=== PATIENT | male | born 1960 | race Caucasian/White ===

== ENCOUNTER 2023-07-10 06:49 | Inpatient (IN) | payer OTHER ==
[2023-07-10] VITALS (8 sets, daily range): BP systolic 128–188; BP diastolic 64–87; TEMP 97–98.4; O2SAT 92–94
[~2023-07-10] VITALS: Ht 188 cm; Wt 73.4 kg
[~2023-07-10 06:49] MED LIST: ASPI81TA26 PO; ATOR1TAB19 PO; CILO50TA2 PO; LOSA100T8 PO; NORV5TAB PO; TAMS1CAP17 PO; ceFAZolin SOD 2 GM in IV 1 EA IV ONE
[2023-07-10] MEDS ORDERED: LIDOCAINE 1% SDV 30ML VIAL As Ordered ONE (07:10)
[2023-07-10] MEDS ORDERED: LIDOCAINE 2% 100MG/5ML SDV (FOR ANES.) As Ordered ONE (07:17)
[2023-07-10] MEDS ORDERED: propofoL 200 MG/20 ML VIAL As Ordered ONE (07:17)
[2023-07-10] MEDS ORDERED: ROCURONIUM BROMIDE 50MG/5ML VIAL As Ordered ONE ×2 (07:17→09:04)
[2023-07-10] MEDS ORDERED: fentaNYL 250 MCG/5 ML INJECTION As Ordered ONE (07:18)
[2023-07-10] MEDS ORDERED: MIDAZOLAM INJ 2MG/2ML VIAL As Ordered ONE (07:18)
[2023-07-10] MEDS ORDERED: LR 1,000 ML IV SCH ×2 (07:35→12:05)
[2023-07-10] MEDS ORDERED: ePHEDrine SULFATE 25 MG/5 ML(5MG/ML) SYRINGE As Ordered ONE ×2 (08:27→11:41)
[2023-07-10] MEDS ORDERED: ONDANSETRON 4MG 2ML VIAL As Ordered ONE (10:22)
[2023-07-10] MEDS ORDERED: HYDROmorphone HCL 2MG/ML 1ML VIAL As Ordered ONE (10:22)
[2023-07-10] MEDS ORDERED: KETOROLAC 60MG 2ML VIAL As Ordered ONE (10:22)
[2023-07-10] MEDS ORDERED: SUGAMMADEX SODIUM 500 MG/5 ML VIAL (BRIDION) As Ordered ONE (10:23)
[2023-07-10] MEDS ORDERED: METOCLOPRAMIDE INJ 10MG/2ML VIAL As Ordered ONE (10:28)
[2023-07-10] MEDS ORDERED: ACETAMINOPHEN 1000MG 100ML IV BAG As Ordered ONE (11:14)
[2023-07-10] MEDS ORDERED: MEPERIDINE 25 MG/ML 1ML VIAL IV PRN (12:05)
[2023-07-10] MEDS ORDERED: fentaNYL 100 MCG/2 ML INJECTION IV PRN (12:05)
[2023-07-10] MEDS ORDERED: oxyCODONE 5MG TAB PO PRN (12:05)
[2023-07-10] MEDS ORDERED: ONDANSETRON 4MG 2ML VIAL IV PRN (12:05)
[2023-07-10] MEDS ORDERED: HYDROMORPHONE HCL 0.5 MG/ 0.5 ML SYRINGE IV PRN (12:05)
[2023-07-10 13:11] LABS: HEMATOCRIT 40.7 % (42.0-52.0); HEMOGLOBIN 13.5 g/dl (13.5-17.5); MEAN CORPUSCULAR HEMOGLOBIN 30.1 pg (27.0-33.0); MEAN CORPUSCULAR HGB CONC 33.2 g/dl (32.0-36.5); MEAN CORPUSCULAR VOLUME 90.6 fl (80.0-96.0); PLATELET COUNT, AUTOMATED 246 10^3/uL (150-450); RED BLOOD COUNT 4.49 10^6/uL (4.30-6.10); WHITE BLOOD COUNT 12.2 10^3/uL (4.0-10.0)
[2023-07-10 13:44] LABS: BLOOD UREA NITROGEN 25 MG/DL (9-23); CALCIUM LEVEL 8.1 MG/DL (8.3-10.6); CARBON DIOXIDE LEVEL 24 MMOL/L (20-31); CHLORIDE LEVEL 104 MMOL/L (98-107); CREATININE FOR GFR 0.97 MG/DL (0.70-1.30); GLOMERULAR FILTRATION RATE > 60.0 (>49); GLUCOSE, FASTING 126 MG/DL (74-106); POTASSIUM SERUM 4.1 MMOL/L (3.5-5.1); SODIUM LEVEL 138 MMOL/L (136-145)
[2023-07-10] MEDS: NS 1,000 ML IV SCH (14:22)
[2023-07-10] MEDS ORDERED: HOME MED LIST COMPLETE! XX SCH (15:20)
[2023-07-10] MEDS: hydroCHLOROthiazide 12.5 MG CAPSULE PO SCH (16:39)
[2023-07-10] MEDS: LOSARTAN 50MG TABLET PO SCH (16:40)
[2023-07-10] MEDS: PERCOCET 5MG/325MG TAB PO PRN (17:25)
[2023-07-10] MEDS: TAMSULOSIN 0.4 MG CAP PO SCH (21:01)
[2023-07-10] MEDS: DOCUSATE SODIUM 100MG CAPSULE PO SCH (21:01)
[2023-07-10] MEDS: ceFAZolin SOD 1 GM in D5W MINI-BAG PLUS 50 ML IV SCH (21:01)
[2023-07-10] MEDS: ATORVASTATIN 10 MG TAB PO SCH (21:02)
[2023-07-11 02:00] VITALS: BP 182/72; TEMP 96.8; O2SAT 94
[2023-07-11] MEDS: NS 1,000 ML IV SCH (02:53)
[2023-07-11] MEDS: PERCOCET 5MG/325MG TAB PO PRN ×4 (02:54→21:04)
[2023-07-11] MEDS: ceFAZolin SOD 1 GM in D5W MINI-BAG PLUS 50 ML IV SCH (03:02)
[2023-07-11 06:00] VITALS: BP 172/77; TEMP 95.4; O2SAT 93
[2023-07-11 06:41] LABS: HEMATOCRIT 38.5 % (42.0-52.0); HEMOGLOBIN 13.3 g/dl (13.5-17.5); MEAN CORPUSCULAR HEMOGLOBIN 30.2 pg (27.0-33.0); MEAN CORPUSCULAR HGB CONC 34.5 g/dl (32.0-36.5); MEAN CORPUSCULAR VOLUME 87.3 fl (80.0-96.0); PLATELET COUNT, AUTOMATED 249 10^3/uL (150-450); RED BLOOD COUNT 4.41 10^6/uL (4.30-6.10); WHITE BLOOD COUNT 12.3 10^3/uL (4.0-10.0)
[2023-07-11 07:06] LABS: BLOOD UREA NITROGEN 20 MG/DL (9-23); CALCIUM LEVEL 8.1 MG/DL (8.3-10.6); CARBON DIOXIDE LEVEL 27 MMOL/L (20-31); CHLORIDE LEVEL 102 MMOL/L (98-107); CREATININE FOR GFR 0.87 MG/DL (0.70-1.30); GLOMERULAR FILTRATION RATE > 60.0 (>49); GLUCOSE, FASTING 109 MG/DL (74-106); POTASSIUM SERUM 3.3 MMOL/L (3.5-5.1); SODIUM LEVEL 138 MMOL/L (136-145)
[2023-07-11] MEDS: LOSARTAN 50MG TABLET PO SCH (08:34)
[2023-07-11] MEDS: amLODIPine 5 MG TAB PO SCH (08:34)
[2023-07-11] MEDS: hydroCHLOROthiazide 12.5 MG CAPSULE PO SCH (08:34)
[2023-07-11] MEDS: DOCUSATE SODIUM 100MG CAPSULE PO SCH ×2 (08:35→20:00)
[2023-07-11] MEDS: ACETAMINOPHEN TAB 650MG DOSE (2X325MG) PO PRN ×3 (08:36→20:01)
[2023-07-11] MEDS ORDERED: COLA100C5 PO (10:44)
[2023-07-11] MEDS ORDERED: PERCOCET PO (10:44)
[2023-07-11 14:00] VITALS: BP 132/60; TEMP 97.5; O2SAT 94
[2023-07-11] MEDS: ATORVASTATIN 10 MG TAB PO SCH (19:59)
[2023-07-11] MEDS: TAMSULOSIN 0.4 MG CAP PO SCH (20:00)
[2023-07-11 22:00] VITALS: BP 111/52; TEMP 96.8; O2SAT 94
[2023-07-12] VITALS (14 sets, daily range): BP systolic 93–132; BP diastolic 57–86; TEMP 93.9–99; O2SAT 89–93
[2023-07-12] MEDS: ACETAMINOPHEN TAB 650MG DOSE (2X325MG) PO PRN ×3 (00:38→15:41)
[2023-07-12] MEDS: PERCOCET 5MG/325MG TAB PO PRN ×3 (01:03→20:34)
[2023-07-12] MEDS: ONDANSETRON 4MG 2ML VIAL IV PRN ×2 (04:27→10:01)
[2023-07-12 06:50] LABS: HEMATOCRIT 29.3 % (42.0-52.0); MEAN CORPUSCULAR HEMOGLOBIN 30.4 pg (27.0-33.0); MEAN CORPUSCULAR HGB CONC 33.8 g/dl (32.0-36.5); MEAN CORPUSCULAR VOLUME 89.9 fl (80.0-96.0); PLATELET COUNT, AUTOMATED 294 10^3/uL (150-450); RED BLOOD COUNT 3.26 10^6/uL (4.30-6.10); WHITE BLOOD COUNT 18.5 10^3/uL (4.0-10.0)
[2023-07-12 06:55] LABS: HEMOGLOBIN 9.9 g/dl (13.5-17.5)
[2023-07-12 07:23] LABS: CALCIUM LEVEL 8.4 MG/DL (8.3-10.6); CREATININE FOR GFR 1.83 MG/DL (0.70-1.30); GLOMERULAR FILTRATION RATE 40.4 (>49)
[2023-07-12] MEDS: NS 1,000 ML IV SCH ×2 (08:51→20:25)
[2023-07-12] MEDS: amLODIPine 5 MG TAB PO SCH (10:02)
[2023-07-12] MEDS: hydroCHLOROthiazide 12.5 MG CAPSULE PO SCH (10:03)
[2023-07-12] MEDS: LOSARTAN 50MG TABLET PO SCH (10:04)
[2023-07-12] MEDS: DOCUSATE SODIUM 100MG CAPSULE PO SCH ×2 (10:04→20:32)
[2023-07-12 12:00] LABS: HEMATOCRIT 26.7 % (42.0-52.0); HEMOGLOBIN 8.9 g/dl (13.5-17.5); MEAN CORPUSCULAR HEMOGLOBIN 30.1 pg (27.0-33.0); MEAN CORPUSCULAR HGB CONC 33.3 g/dl (32.0-36.5); MEAN CORPUSCULAR VOLUME 90.2 fl (80.0-96.0); PLATELET COUNT, AUTOMATED 287 10^3/uL (150-450); RED BLOOD COUNT 2.96 10^6/uL (4.30-6.10); WHITE BLOOD COUNT 20.1 10^3/uL (4.0-10.0)
[2023-07-12] MEDS ORDERED: FAMOTIDINE 20 MG TAB PO ONE (12:15)
[2023-07-12 12:29] LABS: CREATININE FOR GFR 2.01 MG/DL (0.70-1.30); GLOMERULAR FILTRATION RATE 36.3 (>49)
[2023-07-12 14:48] LABS: INR 1.18; PARTIAL THROMBOPLASTIN TIME 29.6 SECONDS (24.8-34.2); PROTHROMBIN TIME 14.6 SECONDS (12.5-14.5)
[2023-07-12] MEDS: TAMSULOSIN 0.4 MG CAP PO SCH (20:32)
[2023-07-12] MEDS: ATORVASTATIN 10 MG TAB PO SCH (20:32)
[2023-07-12 21:35] LABS: HEMATOCRIT 27.4 % (42.0-52.0); HEMOGLOBIN 9.4 g/dl (13.5-17.5)
[2023-07-13] VITALS (14 sets, daily range): BP systolic 94–133; BP diastolic 57–84; TEMP 96.8–98.4; O2SAT 90–95
[2023-07-13] MEDS: PERCOCET 5MG/325MG TAB PO PRN ×5 (00:38→22:53)
[2023-07-13] MEDS: ACETAMINOPHEN TAB 650MG DOSE (2X325MG) PO PRN (03:26)
[2023-07-13 06:19] LABS: HEMOGLOBIN 8.6 g/dl (13.5-17.5); MEAN CORPUSCULAR HEMOGLOBIN 30.6 pg (27.0-33.0); MEAN CORPUSCULAR HGB CONC 34.4 g/dl (32.0-36.5); PLATELET COUNT, AUTOMATED 240 10^3/uL (150-450); RED BLOOD COUNT 2.81 10^6/uL (4.30-6.10); WHITE BLOOD COUNT 21.3 10^3/uL (4.0-10.0)
[2023-07-13 06:46] LABS: CALCIUM LEVEL 7.6 MG/DL (8.3-10.6); CREATININE FOR GFR 1.44 MG/DL (0.70-1.30); GLOMERULAR FILTRATION RATE 53.3 (>49)
[2023-07-13] MEDS: NS 1,000 ML IV SCH ×2 (07:13→22:54)
[2023-07-13] MEDS ORDERED: MORPHINE 2 MG/ML 1ML VIAL IV ONE (07:35)
[2023-07-13] MEDS: hydroCHLOROthiazide 12.5 MG CAPSULE PO SCH (07:40)
[2023-07-13] MEDS: amLODIPine 5 MG TAB PO SCH (07:40)
[2023-07-13] MEDS: DOCUSATE SODIUM 100MG CAPSULE PO SCH ×2 (09:06→20:16)
[2023-07-13] MEDS: MORPHINE 2 MG/ML 1ML VIAL IV PRN ×3 (10:21→20:44)
[2023-07-13 12:28] LABS: HEMATOCRIT 25.8 % (42.0-52.0); HEMOGLOBIN 8.7 g/dl (13.5-17.5)
[2023-07-13] MEDS ORDERED: PILL CUTTER 1 EACH XX PRN (14:15)
[2023-07-13] MEDS: FAMOTIDINE 20 MG TAB PO PRN ×2 (14:17→20:19)
[2023-07-13 18:28] LABS: HEMATOCRIT 23.7 % (42.0-52.0); HEMOGLOBIN 8.2 g/dl (13.5-17.5)
[2023-07-13] MEDS: ATORVASTATIN 10 MG TAB PO SCH (20:16)
[2023-07-13] MEDS: TAMSULOSIN 0.4 MG CAP PO SCH (20:16)
[2023-07-14] VITALS (9 sets, daily range): BP systolic 120–139; BP diastolic 61–73; TEMP 97.7–98.4; O2SAT 87–98
[2023-07-14] MEDS: MORPHINE 2 MG/ML 1ML VIAL IV PRN ×2 (01:57→11:51)
[2023-07-14 05:43] LABS: HEMATOCRIT 24.8 % (42.0-52.0); HEMOGLOBIN 8.5 g/dl (13.5-17.5); MEAN CORPUSCULAR HGB CONC 34.3 g/dl (32.0-36.5); MEAN CORPUSCULAR VOLUME 87.6 fl (80.0-96.0); PLATELET COUNT, AUTOMATED 217 10^3/uL (150-450); RED BLOOD COUNT 2.83 10^6/uL (4.30-6.10); WHITE BLOOD COUNT 19.2 10^3/uL (4.0-10.0)
[2023-07-14 06:09] LABS: BLOOD UREA NITROGEN 46 MG/DL (9-23); CALCIUM LEVEL 7.9 MG/DL (8.3-10.6); CARBON DIOXIDE LEVEL 26 MMOL/L (20-31); CHLORIDE LEVEL 100 MMOL/L (98-107); CREATININE FOR GFR 1.23 MG/DL (0.70-1.30); GLOMERULAR FILTRATION RATE > 60.0 (>49); GLUCOSE, FASTING 117 MG/DL (74-106); POTASSIUM SERUM 4.2 MMOL/L (3.5-5.1); SODIUM LEVEL 134 MMOL/L (136-145)
[2023-07-14] MEDS ORDERED: FUROSEMIDE 20MG/2ML VIAL IV ONE (07:20)
[2023-07-14] MEDS: DOCUSATE SODIUM 100MG CAPSULE PO SCH ×2 (07:43→19:49)
[2023-07-14] MEDS: amLODIPine 5 MG TAB PO SCH (07:43)
[2023-07-14] MEDS: FAMOTIDINE 20 MG TAB PO PRN (07:49)
[2023-07-14] MEDS: PERCOCET 5MG/325MG TAB PO PRN ×2 (08:04→19:48)
[2023-07-14] MEDS: FERROUS SULFATE 325MG TAB PO SCH ×2 (11:50→19:49)
[2023-07-14 14:23] LABS: HEMATOCRIT 23.3 % (42.0-52.0)
[2023-07-14] MEDS: ATORVASTATIN 10 MG TAB PO SCH (19:47)
[2023-07-14] MEDS: TAMSULOSIN 0.4 MG CAP PO SCH (19:49)
[2023-07-14 20:15] LABS: HEMATOCRIT 21.9 % (42.0-52.0); HEMOGLOBIN 7.6 g/dl (13.5-17.5)
[2023-07-15] VITALS (10 sets, daily range): BP systolic 126–146; BP diastolic 67–79; TEMP 97–98.4; O2SAT 89–94
[2023-07-15] MEDS: PERCOCET 5MG/325MG TAB PO PRN ×2 (03:08→14:02)
[2023-07-15 06:27] LABS: HEMATOCRIT 28.2 % (42.0-52.0); INR 1.22; MEAN CORPUSCULAR HEMOGLOBIN 30.6 pg (27.0-33.0); MEAN CORPUSCULAR HGB CONC 34.4 g/dl (32.0-36.5); PLATELET COUNT, AUTOMATED 246 10^3/uL (150-450); RED BLOOD COUNT 3.17 10^6/uL (4.30-6.10); WHITE BLOOD COUNT 16.2 10^3/uL (4.0-10.0)
[2023-07-15 06:29] LABS: HEMOGLOBIN 9.7 g/dl (13.5-17.5)
[2023-07-15 06:49] LABS: BLOOD UREA NITROGEN 40 MG/DL (9-23); CARBON DIOXIDE LEVEL 27 MMOL/L (20-31); CHLORIDE LEVEL 100 MMOL/L (98-107); CREATININE FOR GFR 1.07 MG/DL (0.70-1.30); GLOMERULAR FILTRATION RATE > 60.0 (>49); GLUCOSE, FASTING 116 MG/DL (74-106); POTASSIUM SERUM 4.3 MMOL/L (3.5-5.1); SODIUM LEVEL 136 MMOL/L (136-145)
[2023-07-15] MEDS: DOCUSATE SODIUM 100MG CAPSULE PO SCH ×2 (08:33→20:01)
[2023-07-15] MEDS: FERROUS SULFATE 325MG TAB PO SCH ×2 (08:33→20:01)
[2023-07-15] MEDS: amLODIPine 5 MG TAB PO SCH (08:34)
[2023-07-15] MEDS: FAMOTIDINE 20 MG TAB PO PRN ×2 (08:35→20:02)
[2023-07-15] MEDS: hydroCHLOROthiazide 12.5 MG CAPSULE PO SCH (09:34)
[2023-07-15] MEDS: SIMETHICONE 80MG CHEW TAB PO PRN ×2 (10:15→16:44)
[2023-07-15] MEDS: ONDANSETRON 4MG 2ML VIAL IV PRN (11:08)
[2023-07-15 14:29] LABS: HEMATOCRIT 27.7 % (42.0-52.0); HEMOGLOBIN 9.6 g/dl (13.5-17.5)
[2023-07-15] MEDS: ATORVASTATIN 10 MG TAB PO SCH (20:01)
[2023-07-15] MEDS: TAMSULOSIN 0.4 MG CAP PO SCH (20:01)
[2023-07-16 01:54] VITALS: BP 145/78; TEMP 98.1; O2SAT 91
[2023-07-16] MEDS: PERCOCET 5MG/325MG TAB PO PRN (04:37)
[2023-07-16] MEDS ORDERED: SALIVA SUBSTITUTE(MOUTHKOTE) BTL MT PRN (05:55)
[2023-07-16 06:00] VITALS: BP 126/76; TEMP 98.1; O2SAT 89
[2023-07-16 06:29] LABS: HEMATOCRIT 26.5 % (42.0-52.0); HEMOGLOBIN 8.9 g/dl (13.5-17.5); MEAN CORPUSCULAR HEMOGLOBIN 30.1 pg (27.0-33.0); MEAN CORPUSCULAR HGB CONC 33.6 g/dl (32.0-36.5); MEAN CORPUSCULAR VOLUME 89.5 fl (80.0-96.0); PLATELET COUNT, AUTOMATED 292 10^3/uL (150-450); RED BLOOD COUNT 2.96 10^6/uL (4.30-6.10); WHITE BLOOD COUNT 15.1 10^3/uL (4.0-10.0)
[2023-07-16 06:55] LABS: BLOOD UREA NITROGEN 27 MG/DL (9-23); CARBON DIOXIDE LEVEL 27 MMOL/L (20-31); CHLORIDE LEVEL 100 MMOL/L (98-107); GLOMERULAR FILTRATION RATE > 60.0 (>49); GLUCOSE, FASTING 102 MG/DL (74-106); POTASSIUM SERUM 4.1 MMOL/L (3.5-5.1); SODIUM LEVEL 136 MMOL/L (136-145)
[2023-07-16] MEDS: DOCUSATE SODIUM 100MG CAPSULE PO SCH ×2 (08:43→20:23)
[2023-07-16] MEDS: hydroCHLOROthiazide 12.5 MG CAPSULE PO SCH (08:43)
[2023-07-16] MEDS: FERROUS SULFATE 325MG TAB PO SCH ×2 (08:43→20:23)
[2023-07-16] MEDS: amLODIPine 5 MG TAB PO SCH (08:45)
[2023-07-16 10:00] VITALS: BP 135/72; TEMP 98.2; O2SAT 94
[2023-07-16 14:00] VITALS: BP 124/68; TEMP 98.6; O2SAT 92
[2023-07-16 14:20] LABS: HEMATOCRIT 27.2 % (42.0-52.0); HEMOGLOBIN 9.4 g/dl (13.5-17.5)
[2023-07-16] MEDS: ACETAMINOPHEN TAB 650MG DOSE (2X325MG) PO PRN (16:44)
[2023-07-16] MEDS: TAMSULOSIN 0.4 MG CAP PO SCH (20:23)
[2023-07-16] MEDS: ATORVASTATIN 10 MG TAB PO SCH (20:23)
[2023-07-17 01:10] VITALS: BP 122/67; TEMP 97.8; O2SAT 92
[2023-07-17] MEDS: PERCOCET 5MG/325MG TAB PO PRN (02:13)
[2023-07-17] MEDS: FAMOTIDINE 20 MG TAB PO PRN (02:14)
[2023-07-17 05:30] VITALS: BP 143/80; TEMP 97.9; O2SAT 95
[2023-07-17 06:18] LABS: HEMATOCRIT 26.3 % (42.0-52.0); HEMOGLOBIN 8.9 g/dl (13.5-17.5); MEAN CORPUSCULAR HEMOGLOBIN 30.8 pg (27.0-33.0); MEAN CORPUSCULAR HGB CONC 33.8 g/dl (32.0-36.5); PLATELET COUNT, AUTOMATED 333 10^3/uL (150-450); RED BLOOD COUNT 2.89 10^6/uL (4.30-6.10); WHITE BLOOD COUNT 14.8 10^3/uL (4.0-10.0)
[2023-07-17 06:40] LABS: BLOOD UREA NITROGEN 22 MG/DL (9-23); CALCIUM LEVEL 7.6 MG/DL (8.3-10.6); CARBON DIOXIDE LEVEL 29 MMOL/L (20-31); CHLORIDE LEVEL 100 MMOL/L (98-107); CREATININE FOR GFR 0.77 MG/DL (0.70-1.30); GLOMERULAR FILTRATION RATE > 60.0 (>49); GLUCOSE, FASTING 102 MG/DL (74-106); POTASSIUM SERUM 3.9 MMOL/L (3.5-5.1); SODIUM LEVEL 134 MMOL/L (136-145)
[2023-07-17 07:00] VITALS: BP 143/80; TEMP 97.9; O2SAT 95
[2023-07-17] MEDS: DOCUSATE SODIUM 100MG CAPSULE PO SCH (08:42)
[2023-07-17] MEDS: FERROUS SULFATE 325MG TAB PO SCH (08:42)
[2023-07-17 08:43] VITALS: BP 147/77
[2023-07-17] MEDS: amLODIPine 5 MG TAB PO SCH (08:43)
[2023-07-17] MEDS: hydroCHLOROthiazide 12.5 MG CAPSULE PO SCH (08:43)
[2023-07-17] MEDS: ACETAMINOPHEN TAB 650MG DOSE (2X325MG) PO PRN (08:44)
[2023-07-17] MEDS ORDERED: FERR1TAB8 PO (10:00)
== END 2023-07-17 13:10 | disposition home or self-care (01) | DRG 443 ==
LOC: M OR 06:49 → M MS5PR 13:40
PROVIDERS: ADMIT Urology; ATTEND Urology
PROC: 0DN84ZZ Release Small Intestine, Percutaneous Endoscopic Approach (ICD-10-PCS; 2023-07-10)
PROC: 8E0W4CZ Robotic Assisted Procedure of Trunk Region, Percutaneous Endoscopic Approach (ICD-10-PCS; 2023-07-10)
PROC: 0TT14ZZ Resection of Left Kidney, Percutaneous Endoscopic Approach (ICD-10-PCS; principal; 2023-07-10 07:30)
PROC: 30233N1 Transfusion of Nonautologous Red Blood Cells into Peripheral Vein, Percutaneous Approach (ICD-10-PCS; 2023-07-12)
DX: N28.89 Other specified disorders of kidney and ureter (principal); K66.0 Peritoneal adhesions (postprocedural) (postinfection); D78.32 Postprocedural hematoma of the spleen following other procedure; R31.1 Benign essential microscopic hematuria; Z79.899 Other long term (current) drug therapy; J44.9 Chronic obstructive pulmonary disease, unspecified